=== PATIENT | male | born 1995 | race Caucasian/White ===

== ENCOUNTER 2018-07-26 14:26 | Emergency (ER) | payer BC ==
[2018-07-26 14:59] VITALS: BP 109/61
--- NOTE | 2018-07-26 15:09 | UC ---
Throat Pain/Nasal Nathanael HPI - HPI Summary HPI Summary: Pt presents with multiple c/o's 1. bilateral eye redness and purulent discharge and woke with both eyes "glued shut" this morning. 2. Pt also c/o nasal congestion, ST, cough, fever, chills and sinus pressure and pain X 10 days. - History of Current Complaint Chief Complaint: UCRespiratory Stated Complaint: ST,COUGH,BILATERAL EYE COMPLAINT Time Seen by Provider: 07/26/18 14:51 Hx Obtained From: Patient Onset/Duration: Sudden Onset, Lasting Days, Still Present Severity: Mild Pain Intensity: 4 Associated Signs & Symptoms: Positive: Sinus Discomfort, Fever - Epiglottits Risk Factors Epiglottis Risk Factors: Negative - Allergies/Home Medications Allergies/Adverse Reactions: Allergies Allergy/AdvReac Type Severity Reaction Status Date / Time No Known Allergies Allergy Verified 07/26/18 14:56 PMH/Surg Hx/FS Hx/Imm Hx Previously Healthy: Yes - Surgical History Surgical History: None - Family History Known Family History: Positive: Cardiac Disease - Social History Occupation: Student Alcohol Use: Occasionally Substance Use Type: None Smoking Status (MU): Never Smoked Tobacco Have You Smoked in the Last Year: No - Immunization History Vaccination Up to Date: Yes Review of Systems Constitutional: Fever, Chills, Fatigue Skin: Negative Eyes: Drainage, Eye Redness ENT: Sinus Congestion, Sinus Pain/Tenderness Respiratory: Cough Cardiovascular: Negative Gastrointestinal: Negative Genitourinary: Negative Motor: Negative Neurovascular: Negative Musculoskeletal: Negative Neurological: Negative Psychological: Negative Is Patient Immunocompromised?: No All Other Systems Reviewed And Are Negative: Yes Physical Exam Triage Information Reviewed: Yes Appearance: Ill-Appearing Vital Signs: Initial Vital Signs Temp 97.6 F 07/26/18 14:54 Pulse 64 07/26/18 14:54 Resp 16 07/26/18 14:54 BP 109/61 07/26/18 14:54 Pulse Ox 98 07/26/18 14:54 Vital Signs Reviewed: Yes Eyes: Positive: Conjunctiva Inflamed, Discharge ENT: Positive: Nasal congestion, Sinus tenderness Dental Exam: Normal Neck exam: Normal Respiratory Exam: Normal Cardiovascular Exam: Normal Musculoskeletal Exam: Normal Neurological Exam: Normal Psychological Exam: Normal Skin Exam: Normal Throat Pain/Nasal Course/Dx - Differential Dx/Diagnosis Differential Diagnosis/HQI/PQRI: Pharyngitis, Sinusitis, URI Provider Diagnoses: conjunctivitis, bilateral. sinusitis Discharge - Sign-Out/Discharge Documenting (check all that apply): Patient Departure All imaging exams completed and their final reports reviewed: No Studies - Discharge Plan Condition: Stable Disposition: HOME Prescriptions: Amoxicillin PO (*) [Amoxicillin 875 MG (*)] 875 mg PO Q12H #20 tab Guaifenesin/Pseudoephedrne HCl [Mucinex D ER 600-60 mg Tablet] 1 each PO Q12H # 14 tab.er.12h Polymyx/Trimethoprim OPTH* [Polytrim OPHTH*] 2 drop BOTH EYES Q6H 7 Days #1 btl Patient Education Materials: Conjunctivitis (ED), Sinusitis (ED) Referrals: No Primary Care Phys,NOPCP [Primary Care Provider] - [facility] [Outside] - If Needed - Billing Disposition and Condition Condition: STABLE Disposition: Home
== END 2018-07-26 15:30 | disposition home or self-care (01) ==
LOC: UCCORT 14:26
DX: H10.9 Unspecified conjunctivitis (principal); J32.9 Chronic sinusitis, unspecified
CPT/HCPCS: 99202; G0463

== ENCOUNTER 2019-06-23 18:35 | Emergency (ER) | payer BC ==
[2019-06-23 19:16] VITALS: BP 120/50
--- NOTE | 2019-06-23 19:49 | ED ---
Lower Extremity - HPI Summary HPI Summary: 24 yr old male with the complaint of left ankle pain. Onset of symptoms two hours ago. The patient has swelling and pain after rolling his right ankle. The pain is moderate, worse with trying to bear weight. He was playing basketball. No other complaints. - History of Current Complaint Chief Complaint: UCLowerExtremity Stated Complaint: LEFT ANKLE INJURY Time Seen by Provider: 06/23/19 19:32 Pain Intensity: 7 - Allergies/Home Medications Allergies/Adverse Reactions: Allergies Allergy/AdvReac Type Severity Reaction Status Date / Time No Known Allergies Allergy Verified 06/23/19 19:17 Home Medications: Home Medications Ibuprofen TAB* [Motrin TAB* 400 MG] 400 mg PO Q6H PRN 06/23/19 [History Confirmed 06/23/19] PMH/Surg Hx/FS Hx/Imm Hx Infectious Disease History: No Infectious Disease History: Denies: Traveled Outside the [place] in Last 30 Days - Family History Known Family History: Positive: Cardiac Disease - Social History Occupation: Student Alcohol Use: Occasionally Substance Use Type: Reports: None Smoking Status (MU): Never Smoked Tobacco Have You Smoked in the Last Year: No Review of Systems Constitutional: Negative Positive: Other - left ankle pain All Other Systems Reviewed And Are Negative: Yes Physical Exam Triage Information Reviewed: Yes Vital Signs On Initial Exam: Initial Vitals Temp Pulse Resp BP Pulse Ox 97.9 F 75 16 120/50 100 06/23/19 19:11 06/23/19 19:11 06/23/19 19:11 06/23/19 19:11 06/23/19 19:11 Vital Signs Reviewed: Yes Appearance: Positive: Well-Appearing, No Pain Distress Skin: Positive: Warm, Skin Color Reflects Adequate Perfusion Head/Face: Positive: Normal Head/Face Inspection Eyes: Positive: EOMI ENT: Positive: Normal ENT inspection Neck: Positive: Nontender Respiratory/Lung Sounds: Positive: Clear to Auscultation Cardiovascular: Positive: Pulses are Symmetrical in both Upper and Lower Extremities Abdomen Description: Positive: Nontender. Negative: Distended Musculoskeletal: Positive: Other - left ankle with STS over the lateral malleolus and tenderness as well. No tenderness over base of 5th metatarsal. Non tender over the proximal fibula. Neurological: Positive: Normal, Sensory/Motor Intact, Alert, Oriented to Person Place, Time, CN Intact II-III Psychiatric: Positive: Normal - [place] Coma Scale Best Eye Response: 4 - Spontaneous Best Motor Response: 6 - Obeys Commands Best Verbal Response: 5 - Oriented Coma Scale Total: 15 Diagnostics - Vital Signs Vital Signs Temp Pulse Resp BP Pulse Ox 06/23/19 19:11 97.9 F 75 16 120/50 100 - Laboratory Lab Statement: Any lab studies that have been ordered have been reviewed, and results considered in the medical decision making process. - Radiology left ankle Radiology Interpretation Completed By: ED Physician - STS over the lateral malleolus left ankle. Lower Extremity Course/Dx - Course Course Of Treatment: 24 yr old with left ankle pain - Diagnoses Provider Diagnoses: Left ankle sprain Discharge ED - Sign-Out/Discharge Documenting (check all that apply): Patient Departure All imaging exams completed and their final reports reviewed: No - Discharge Plan Condition: Good Disposition: HOME Patient Education Materials: Ankle Sprain (ED) Forms: *Physical Education Release, *Work Release Referrals: No Primary Care Phys,NOPCP [Primary Care Provider] - Alberto Doe MD [Medical Doctor] - 2 Days - Billing Disposition and Condition Condition: GOOD Disposition: Home
--- NOTE | 2019-06-24 11:21 | UC ---
- Progress Note Progress Note: Patient Name: ALMAS ORDONEZ Medical Record#: [id number] Ordering Physician: Joshua Ely MD Acct.#: [id number] : 1995 Age: 24 Sex: M [place] [facility] [place]: 06[place]191932 ADM Status: [facility] Order Information: ANKLE LEFT 3+VWS Accession Number: [id number] CPT: 71720 HISTORY: pain . Left ankle pain and injury COMPARISONS: None relevant available at the time of dictation. VIEWS: 3, Frontal, lateral, and oblique views of the left ankle FINDINGS: BONE DENSITY: Normal. BONES: There is no displaced fracture. JOINTS: There is no arthropathy. ALIGNMENT: There is no dislocation. SOFT TISSUES: There is soft tissue swelling along the lateral malleolus. There is minimal dystrophic calcification laterally. OTHER FINDINGS: None. IMPRESSION: SOFT TISSUE SWELLING. NO ACUTE OSSEOUS INJURY. IF SYMPTOMS PERSIST, RECOMMEND REPEAT IMAGING. R2 Preliminary Imaging Read R2 <Electronically signed by Donis Cole MD in [place]> 06/24/19803 Dictated By: Donis Cole MD Dictated Date/Time: 06/24/19802 Transcribed Date/Time: 06/24/19802 Copy to: CC:No Primary Care Phys,NOPCP ; Joshua Ely MD Imaging - [facility] Imaging [facility]gent [facility] [address] [place] [address] This report is only to be considered final once signed by the Provider(s) as displayed in the "<Electronically Signed by >" field (s). Absence of a signature indicates the report is in a draft status and still needs to be finalized. In the event this document was created by someone other than the signing Provider, the individual initiating the document will be listed in the "Entered by:" or "Dictated by:" silverio. 1 of 2 Course/Dx - Diagnoses Provider Diagnoses: Left ankle sprain Discharge ED - Sign-Out/Discharge Documenting (check all that apply): Post-Discharge Follow Up All imaging exams completed and their final reports reviewed: Yes - Discharge Plan Condition: Good Disposition: HOME Patient Education Materials: Ankle Sprain (ED) Forms: *Physical Education Release, *Work Release Referrals: Alberto Doe MD [Medical Doctor] - 2 Days No Primary Care Phys,NOPCP [Primary Care Provider] - - Billing Disposition and Condition Condition: GOOD Disposition: Home
== END 2019-06-23 20:10 | disposition home or self-care (01) ==
LOC: UCCORT 18:35
DX: S93.402A Sprain of unspecified ligament of left ankle, initial encounter (principal); X50.0XXA Overexertion from strenuous movement or load, initial encounter; Y93.67 Activity, basketball; Y92.9 Unspecified place or not applicable
CPT/HCPCS: 99213; G0463